=== PATIENT | male | born 1975 | race Caucasian/White ===

== ENCOUNTER 2019-12-21 22:40 | Emergency (ER) | payer OTHER ==
[~2019-12-21] VITALS: Ht 182.9 cm; Wt 86.2 kg
[2019-12-21] MEDS ORDERED: SERT100T PO (23:00)
[2019-12-21] MEDS ORDERED: GABA600T7 PO (23:01)
[2019-12-21] MEDS ORDERED: HYDR25TA PO (23:01)
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
[2019-12-21] MEDS ORDERED: LIDOCAINE 1% Multi-Dose 20 ML VIAL. INJ ONE (23:30)
[2019-12-21] MEDS ORDERED: DIPHTH,PERTUSS(ACELL),TET TOX 0.5 ML DISP.SYRIN. VAX IM ONE (23:30)
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
[2019-12-22] MEDS ORDERED: IBUP-1007 PO
[2019-12-22 00:56] VITALS: BP 128/67
== END 2019-12-22 00:56 | disposition home or self-care (01) ==
LOC: EEVIPCON 22:40 → ER 22:40
DX: S01.511A Laceration without foreign body of lip, initial encounter (principal); Y04.0XXA Assault by unarmed brawl or fight, initial encounter; Y93.89 Activity, other specified; Y92.89 Other specified places as the place of occurrence of the external cause; Y99.8 Other external cause status
CPT/HCPCS: 12011; 70450; 70486; 90471; 90715; 99285; J3490